=== PATIENT | female | born 1965 | race Caucasian/White ===

== ENCOUNTER → 2017-04-04 | Day surgery (SDC) | payer OTHER ==
[~2017-04-04] VITALS: Ht 157.5 cm; Wt 127.0 kg
[~2017-04-04] MED LIST: ALBUTEROL0.09 MG/A1 INH; AMLODIPINE10 MG PO; ARIMIDEX1 M1 PO; CALCIUM; CEPHALEXIN500 MG PO; COZAAR 100MG T100 MG PO; FLEXERIL10 MG PO; HYDROXYCHLOROQ200 M2 PO; LEVOTHYROXIN0.125 M1 PO; LEVOTHYROXINE0.15 M1 PO; LOSARTAN POTASS50 MG PO; METOPROLOL SUCC25 MG PO; MOBIC 15MG15 MG PO; PREDNISONE 20MG20 MG PO; PRILOSEC20 MG PO; PROBIOTIC1 EACH PO; TESSALON PERLE100 MG PO; VICODIN5-300 PO; VITAMIN B122500 MC2; VITAMIN D31000 UNI1 PO; VITAMIN D50000 IU PO; ZOFRAN4 M1 PO
--- NOTE | 2017-04-04 18:49 | Operative Report ---
Operative/Inv Procedure Report Surgery Date: 04/04/17 Name of Procedure: Left breast reconstruction with removal of tissue car tester and replacement of permanent silicone implant, capsulotomy Pre-Operative Diagnosis: Acquired absence of left breast Post-Operative Diagnosis: Acquired absence of left breast Estimated Blood Loss: 50ml to 100ml Surgeon/Top Case Assembler: DASIA LUU MD Anesthesia: general endotracheal tube IV Fluids: 1L Crystalloids Implants: 550 cc MPP [place] permanent silicone implant REF: [id number] LOT: [id number] Urine Output: N/A Drains: None Specimens: Left mastectomy scar Tissue expanders Microbiology: None Tourniquet: N.A.. Complications: None Condition: Stable Operative Indication: 51 female s/p left mastectomy, RT, tissue car tester presented for removal of tissue car tester for placement of permanent silicone implant. Operative/Procedure Note Note: The patient was taken to the operating room and placement in supine position. SCD's placed on the lower extremity, antibiotics administered. Anterior chest wall prepped and draped. 10 cc 0.5% Marcaine with epinephrine injected into previous left mastectomy scar. Mastectomy scar excised. Sent to pathology. Dissection made through subcutaneous tissue through lateral border of pectoralis major muscle. Tissue car tester exposed, deflated, and removed. Breast pocket inspected. Irrigated with diluted betadine and antibiotic solution (Bacitracin, Gentamicin). 550 cc sizer attempted to insert into breast pocket. Decision made to do circumferential capsulotomy. Hemostasis achieved. Anterior chest wall prepped again. Surgical gloves changed. [place] 550 cc MPP silicone implant REF: [id number], [id number], [id number] placed. 2-0 Vicryl used to reapproximated lateral pectoralis major muscle to fascia. Subcutaneous tissue with deep dermis reapproximated with 2-0 Vicryl. 3-0 monocryl used to reapproximate subcutaneous tissue in a running fashion. 10 cc 0.5% Marcaine with epinephrine injected in surgical wound site. Counts were correct. Dermabond, Telfa, Tegaderm applied. Surgical bra placed. Patient tolerated the procedure well, extubated, and returned to recovery room in stable condition. Discharge Disposition: Same Day Admissions
== END ==
LOC: STS 01:44
DX: Z90.12 Acquired absence of left breast and nipple (principal); Z85.3 Personal history of malignant neoplasm of breast; I10 Essential (primary) hypertension; E03.9 Hypothyroidism, unspecified; G47.33 Obstructive sleep apnea (adult) (pediatric)
CPT/HCPCS: 88305; C1789; J0131; J0690; J0744; J1580; J2250